=== PATIENT | male | born 1980 | race Two or more races ===

== ENCOUNTER 2021-06-01 20:07 | Emergency (ER) | payer SELFPAY ==
[~2021-06-01] VITALS: Ht 175.3 cm; Wt 90.7 kg
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
[2021-06-02] MEDS ORDERED: PENICILLIN G BENZATHINE 2.4 MMU/4 ML DISP.SYRIN IM ONE ×2 (00:41→00:45)
[2021-06-02] MEDS ORDERED: DEXAMETHASONE SOD PHOSPHATE 10 MG INJ ONE (00:43)
[2021-06-02] MEDS ORDERED: DEXAMETHASONE SOD PHOSPHATE 4 MG INJ IM ONE (00:45)
--- NOTE | 2021-06-02 01:08 | NUR ---
Patient discharged to home in stable condition. Written and verbal after care instructions given. Patient verbalizes understanding of instructions. Stressed follow up or return to ER for worsening s/s.
[2021-06-02 01:09] VITALS: BP 127/80
== END 2021-06-02 01:10 | disposition home or self-care (01) ==
LOC: ER 20:10
DX: J02.9 Acute pharyngitis, unspecified (principal); Z20.822 Contact with and (suspected) exposure to COVID-19
CPT/HCPCS: 86403; 87070; 87400; 87426; 96372 ×2; 99284; J0561; J1100; A4663

== ENCOUNTER 2022-09-20 15:30 | Emergency (ER) | payer MEDICAID, OTHER ==
[~2022-09-20] VITALS: Ht 167.6 cm; Wt 77.1 kg
[~2022-09-20 15:30] MED LIST: OXYC-128 PO; SULF1TAB48 PO
--- NOTE | 2022-09-20 16:00 | NUR ---
pt in bed, collected flu and covid swab, sent to lab
--- NOTE | 2022-09-20 16:36 | NUR ---
seen and examined by MD Ramos
--- NOTE | 2022-09-20 16:49 | NUR ---
collected strep throat swab and sent to lab
[2022-09-20] MEDS ORDERED: DEXAMETHASONE SOD PHOSPHATE 4 MG INJ IM ONE (18:00)
[2022-09-20] MEDS ORDERED: KETOROLAC TROMETHAMINE 30 MG INJ IM ONE (18:00)
[2022-09-20] MEDS ORDERED: PENI500T PO (18:04)
[2022-09-20] MEDS ORDERED: KETOROLAC TROMETHAMINE 30 MG INJ ONE (18:21)
[2022-09-20] MEDS ORDERED: DEXAMETHASONE SOD PHOSPHATE 10 MG INJ ONE (18:21)
[2022-09-20 18:31] VITALS: BP 120/80
== END 2022-09-20 18:31 | disposition home or self-care (01) ==
LOC: ER 15:30
DX: J02.9 Acute pharyngitis, unspecified (principal); F17.210 Nicotine dependence, cigarettes, uncomplicated; Z79.899 Other long term (current) drug therapy; Z20.822 Contact with and (suspected) exposure to COVID-19
CPT/HCPCS: 99284; 87426; 87804 ×2; 86403; 96372 ×2; J1100; J1885; A4663

== ENCOUNTER 2023-06-24 01:35 | Emergency (ER) | payer MEDICAID, OTHER ==
[~2023-06-24] VITALS: Ht 167.6 cm; Wt 90.7 kg
[~2023-06-24 01:35] MED LIST changes: +PENI500T PO
[2023-06-24 02:09] LABS: BASOPHILS % (AUTO) 0.5 % (0.0-2.0); EOSINOPHILS # (AUTO) 0.3 K/uL (0.0-0.7); EOSINOPHILS % (AUTO) 2.7 % (0.0-7.0); HEMATOCRIT 47.4 % (36.7-47.1); HEMOGLOBIN 16.7 g/dL (12.5-16.3); LYMPHOCYTES # (AUTO) 4.1 K/uL (0.8-4.8); LYMPHOCYTES % (AUTO) 43.4 % (20.5-51.5); MEAN CORPUSCULAR HEMOGLOBIN 30.1 uug (23.8-33.4); MEAN CORPUSCULAR HGB CONC 35 g/dL (32.5-36.3); MEAN CORPUSCULAR VOLUME 85.3 fL (73.0-96.2); MONOCYTES # (AUTO) 0.6 K/uL (0.1-1.30); MONOCYTES % (AUTO) 6.4 % (0.0-11.0); NEUTROPHILS # (AUTO) 4.5 K/uL (1.8-8.9); PLATELET COUNT (AUTO) 355 K/uL (152-348); RED BLOOD CELL COUNT(AUTO) 5.55 MIL/uL (4.06-5.63); RED CELL DISTRIBUTION WIDTH 12.7 % (12.1-16.2); WHITE BLOOD COUNT (AUTO) 9.6 K/uL (3.6-10.2)
[2023-06-24 02:10] LABS: DIFFERENTIAL COMMENT 1
[2023-06-24 02:16] LABS: CARBON DIOXIDE 28 mmol/L (21-32); CHLORIDE 101 mmol/L (98-107); CREATININE 0.8 mg/dL (0.6-1.3); GLUCOSE 107 mg/dL (74-106); POTASSIUM 3.3 mmol/L (3.5-5.1); SODIUM SERUM 140 mmol/L (136-145); UREA NITROGEN, BLOOD 17 mg/dL (7-18)
[2023-06-24 02:25] LABS: ALANINE AMINOTRANSFERASE 35 U/L (16-63); ALBUMIN 4.7 g/dL (3.4-5.0); ALKALINE PHOSPHATASE 82 U/L (50-136); ASPARTATE AMINOTRANSFERASE 23 U/L (15-37); BILIRUBIN,DIRECT 0.1 mg/dL (0.0-0.2); BILIRUBIN,TOTAL 0.4 mg/dL (0.2-1.0); TOTAL PROTEIN, SERUM 9.2 g/dL (6.4-8.2)
[2023-06-24] MEDS ORDERED: POTASSIUM CHLORIDE 20 MEQ TAB.PRT.SR PO ONE (02:45)
[2023-06-24] MEDS ORDERED: POTASSIUM CHLORIDE 20 MEQ TAB.PRT.SR ONE (02:48)
[2023-06-24] MEDS ORDERED: AMLO-212 PO (03:15)
[2023-06-24 03:33] VITALS: BP 158/100; TEMP 97.7; O2SAT 98
== END 2023-06-24 03:34 | disposition home or self-care (01) ==
LOC: ER 01:41
DX: R07.89 Other chest pain (principal); F41.9 Anxiety disorder, unspecified; E06.9 Thyroiditis, unspecified; I10 Essential (primary) hypertension; Z68.32 Body mass index [BMI] 32.0-32.9, adult
CPT/HCPCS: 36415; 71045; 84484; 85025; 93005; A4606; A4663

== ENCOUNTER 2023-12-04 01:28 | Emergency (ER) | payer MEDICARE, OTHER ==
[~2023-12-04] VITALS: Ht 167.6 cm; Wt 90.7 kg
[~2023-12-04 01:28] MED LIST changes: +AMLO-212 PO
[2023-12-04] MEDS ORDERED: CLONIDINE HCL 0.1 MG TABLET ONE (02:48)
[2023-12-04] MEDS: CLONIDINE HCL 0.1 MG TABLET PO ONE (02:50)
[2023-12-04 03:18] LABS: BASOPHILS % (AUTO) 0.4 % (0.0-2.0); EOSINOPHILS # (AUTO) 0.2 K/uL (0.0-0.7); EOSINOPHILS % (AUTO) 2.3 % (0.0-7.0); HEMATOCRIT 41.7 % (36.7-47.1); HEMOGLOBIN 14.3 g/dL (12.5-16.3); LYMPHOCYTES % (AUTO) 24.7 % (20.5-51.5); MEAN CORPUSCULAR HGB CONC 34 g/dL (32.5-36.3); MEAN CORPUSCULAR VOLUME 87.4 fL (73.0-96.2); MONOCYTES # (AUTO) 0.6 K/uL (0.1-1.30); MONOCYTES % (AUTO) 7.9 % (0.0-11.0); NEUTROPHILS # (AUTO) 5.2 K/uL (1.8-8.9); NEUTROPHILS % (AUTO) 64.7 % (38.5-71.5); PLATELET COUNT (AUTO) 292 K/uL (152-348); RED BLOOD CELL COUNT(AUTO) 4.77 MIL/uL (4.06-5.63); RED CELL DISTRIBUTION WIDTH 12.4 % (12.1-16.2)
[2023-12-04 03:36] LABS: DIFFERENTIAL COMMENT 1
[2023-12-04 03:44] LABS: CALCIUM 10.1 mg/dL (8.5-10.1); CARBON DIOXIDE 29 mmol/L (21-32); CHLORIDE 102 mmol/L (98-107); CREATININE 0.9 mg/dL (0.6-1.3); GLUCOSE 100 mg/dL (74-106); POTASSIUM 3.6 mmol/L (3.5-5.1); SODIUM SERUM 141 mmol/L (136-145); UREA NITROGEN, BLOOD 10 mg/dL (7-18)
[2023-12-04 03:56] LABS: NT-PRO BNP 14 pg/mL (0-125)
[2023-12-04 05:07] VITALS: BP 130/68; TEMP 98.7; O2SAT 98
== END 2023-12-04 05:09 | disposition home or self-care (01) ==
LOC: ER 01:40
DX: F41.9 Anxiety disorder, unspecified (principal); R03.0 Elevated blood-pressure reading, without diagnosis of hypertension; F17.200 Nicotine dependence, unspecified, uncomplicated; Z79.1 Long term (current) use of non-steroidal anti-inflammatories (NSAID); Z79.899 Other long term (current) drug therapy
CPT/HCPCS: 36415; 84484; 85025; 93005; A4606; A4663

== ENCOUNTER 2023-12-18 01:38 | Emergency (ER) | payer MEDICARE ==
[~2023-12-18] VITALS: Ht 167.6 cm; Wt 89.8 kg
[2023-12-18 02:38] VITALS: BP 113/73; TEMP 99.1; O2SAT 99
== END 2023-12-18 02:40 | disposition home or self-care (01) ==
LOC: ER 01:44
DX: T16.1XXA Foreign body in right ear, initial encounter (principal); Z90.49 Acquired absence of other specified parts of digestive tract; Z79.899 Other long term (current) drug therapy; Z79.891 Long term (current) use of opiate analgesic; Y92.89 Other specified places as the place of occurrence of the external cause
CPT/HCPCS: A4606; A4663